=== PATIENT | female | born 1960 | race Caucasian/White ===

== ENCOUNTER 2016-10-18 18:31 | Emergency (ER) | payer OTHER ==
[~2016-10-18] VITALS: Ht 160 cm; Wt 72.6 kg
[~2016-10-18 18:31] MED LIST: ULTRAM50 MG PO
[2016-10-18 19:19] VITALS: BP 100/77
--- NOTE | 2016-10-18 20:35 | NUR ---
PATIENT AMBULATED TO ER OF1.
--- NOTE | 2016-10-18 20:35 | NUR ---
PATIENT PRESENTS TO ED WITH REQUEST FOR MEDICATION REFILL AND C/O LOWER BACK PAIN FOR 6 DAYS, FOR MEDICATION REFILL TRAMADOL 50 MG PO TID . 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 ER MD MADE AWARE OF PT STATUS.
--- NOTE | 2016-10-18 21:01 | NUR ---
Patient being evaluated by physician.
--- NOTE | 2016-10-18 21:08 | NUR ---
Patient discharged with v/s stable. Written and verbal after care instructions given and explained. Patient alert, oriented and verbalized understanding of instructions. Ambulatory with steady gait. All questions addressed prior to discharge. ID band removed. Patient advised to follow up with PMD. Rx of ULTRAM 50MG given. Patient educated on indication of medication including possible reaction and side effects. Opportunity to ask questions provided and answered.
[2016-10-18 21:09] VITALS: BP 119/76
== END 2016-10-18 21:08 | disposition home or self-care (01) ==
LOC: MED 18:31
DX: M54.42 Lumbago with sciatica, left side (principal); M54.41 Lumbago with sciatica, right side

== ENCOUNTER 2016-12-28 18:57 | Emergency (ER) | payer OTHER ==
[~2016-12-28] VITALS: Ht 157.5 cm; Wt 71.2 kg
[~2016-12-28 18:57] MED LIST changes: +TRAM50TA94 PO; -ULTRAM50 MG PO
[2016-12-28 19:09] VITALS: BP 168/92
--- NOTE | 2016-12-28 22:10 | NUR ---
PATIENT AMBULATED TO ER BED 8.
--- NOTE | 2016-12-28 22:15 | NUR ---
PT IS 56/F BIB SELF TO ED WITH C/O EXACERBATED LOW BACK PAIN RADIATING BLE X 2 DAYS DENIES DYSURIA, DENIES INCONTINENCE PT STATES MED HX DISLOCATED DISC. DENIES N/V/D; SKIN IS PINK/WARM/DRY; AAOX4 WITH EVEN AND STEADY GAIT WITH CANE; LUNGS CLEAR BL; HR EVEN AND REGULAR; PT DENIES ANY FEVER, CP, SOB, OR COUGH AT THIS TIME; PATIENT STATES PAIN OF 7/10 AT THIS TIME; VSS; PATIENT POSITIONED FOR COMFORT; HOB ELEVATED; BEDRAILS UP X2; BED DOWN. ER MD MADE AWARE OF PT STATUS.
--- NOTE | 2016-12-28 22:30 | NUR ---
PATIENT BEING EVALUATED BY DR. RAYA.
--- NOTE | 2016-12-28 23:39 | NUR ---
PT APPEARS TO BE RESTING COMFORTABLY IN BED. NO SOB NOTED AT THIS TIME.
--- NOTE | 2016-12-29 00:39 | NUR ---
PT RESTING IN BED. NO SOB NOTED. SAMPSON BAIRD AT BEDSIDE.
[2016-12-29] MEDS ORDERED: NACL 0.9% 1,000 ML IV ONE (01:50)
[2016-12-29] MEDS ORDERED: ONDANSETRON 4 MG/2 ML VIAL IVP ONE (01:50)
[2016-12-29] MEDS ORDERED: HYDROmorphone 1 MG/ML AMP IVP ONE (01:50)
[2016-12-29 02:05] LABS: APPEARANCE,URINE HAZY (CLEAR); BILIRUBIN,URINE 1+ (NEGATIVE); BLOOD, URINE NEGATIVE (NEGATIVE); COLOR,URINE YELLOW (YELLOW); LEUKOCYTE ESTERASE ,URINE NEGATIVE (NEGATIVE); NITRITE, URINE NEGATIVE (NEGATIVE); PH,URINE 5.5 (5.0-9.0); PROTEIN,URINE TRACE (NEGATIVE); UGLUCOSE NEGATIVE (NEGATIVE)
[2016-12-29 02:11] LABS: HEMATOCRIT 39.3 % (36-48); HEMOGLOBIN 12.7 g/dL (12.0-16.0); MEAN CORPUSCULAR HEMOGLOBIN 28 pg (27-31); MEAN CORPUSCULAR HGB CONC 32 g/dL (33-37); MEAN CORPUSCULAR VOLUME 85 fL (80-94); PLATELET COUNT (AUTO) 281 K/uL (140-450); RED BLOOD CELL COUNT(AUTO) 4.62 MIL/uL (4.20-5.40); RED CELL DISTRIBUTION WIDTH 13.2 % (11.6-13.7); WHITE BLOOD COUNT (AUTO) 7.2 K/uL (4.8-10.8)
[2016-12-29 02:15] LABS: BACTERIA,URINE OCCASSIONAL /HPF (None Seen); MUCUS,URINE 3+ /LPF (None Seen); RBC,URINE 0-5 (RARE) /HPF (0-5); SQUAMOUS EPITHELIAL CELL,UR 4-10 (MOD) /LPF (0-3 (FEW))
[2016-12-29 02:16] LABS: WBC,URINE 0-5 (RARE) /HPF (0-5)
[2016-12-29 02:23] LABS: ALBUMIN 3.3 g/dL (3.4-5.0); ANION GAP 11.4 (8-16); CALCIUM 8.5 mg/dL (8.5-10.1); CARBON DIOXIDE 29.6 mmol/L (21-32); CREATININE 0.9 mg/dL (0.6-1.3); EOSINOPHILS % (MANUAL) 2 % (0-4); LYMPHOCYTES % (MANUAL) 48 % (20-46); MONOCYTES % (MANUAL) 8 % (5-12); NEUTROPHILS % (MANUAL) 42 (43-65); TOTAL BILIRUBIN 0.2 mg/dL (0.0-1.0); TOTAL PROTEIN, SERUM 7.1 g/dL (6.4-8.2)
[2016-12-29 02:25] LABS: ICTOTEST NEGATIVE (NEGATIVE)
--- NOTE | 2016-12-29 02:41 | NUR ---
PT RESTING COMFORTABLY IN BED. PT DENIES ANY PAIN AT THIS TIME. NO SOB NOTED. WILL CONTINUE TO MONITOR
[2016-12-29 04:36] VITALS: BP 130/81
--- NOTE | 2016-12-29 04:36 | NUR ---
Patient discharged with v/s stable. Written and verbal after care instructions given and explained. Patient alert, oriented and verbalized understanding of instructions. Ambulatory with steady gait. All questions addressed prior to discharge. ID band removed. Patient advised to follow up with PMD. Rx of ASHLEE HENRY given. Patient educated on indication of medication including possible reaction and side effects. Opportunity to ask questions provided and answered.
--- NOTE | 2016-12-31 12:33 | NUR ---
FINAL URINE CULTURES RESULTS RECEIVED. M.D. UPDATED. NO CHANGES INDICATED AT THIS TIME. CURRENT MEDICATION REGIMEN REMAINS APPROPRIATE.
== END 2016-12-29 04:36 | disposition home or self-care (01) ==
LOC: MED 18:57
DX: M51.36 Other intervertebral disc degeneration, lumbar region (principal)
CPT/HCPCS: 36415; 80053; 81001; 85025; 96361; 96374; 96375; 99284; J1170; J2405; J7030

== ENCOUNTER 2017-01-04 16:05 | Emergency (ER) | payer OTHER ==
[~2017-01-04] VITALS: Ht 154.9 cm; Wt 71.8 kg
[2017-01-04 16:09] VITALS: BP 145/102
--- NOTE | 2017-01-04 18:15 | NUR ---
Pt taken to bed 7.
--- NOTE | 2017-01-04 18:16 | NUR ---
Patient being evaluated by physician at bedside.
[2017-01-04] MEDS ORDERED: ONDANSETRON 4 MG/2 ML VIAL IM ONE (18:20)
[2017-01-04] MEDS ORDERED: HYDROmorphone PFS 2 MG/ML SYR IM ONE (18:20)
--- NOTE | 2017-01-04 18:22 | NUR ---
56/F c/o chronic lower back pain since this morning. Pt denies any injury or trauma. Pt states she is d/t to see her pain management doctor 01/24/17. Ambulatory with a cane for assistance, otherwise steady. VSS. Pt AOX4, clear speech, no distress noted.
--- NOTE | 2017-01-04 18:25 | NUR ---
Pt advised she is not to drive under influence of medications given today. Pt verbalized understanding. Pt states "My phone is in my trunk outside. I just need to call my son in law and he said he would be here." Pt instructed she should not drive home. Pt verbalized understanding.
[2017-01-04 18:50] VITALS: BP 156/81
--- NOTE | 2017-01-04 18:51 | NUR ---
Patient discharged with v/s stable. Written and verbal after care instructions given and explained. Patient alert, oriented and verbalized understanding of instructions. Ambulatory with steady gait. All questions addressed prior to discharge. ID band removed. Patient advised to follow up with PMD. RX OF MOTRIN AND TRAMADOL given. Patient educated on indication of medication including possible reaction and side effects. Opportunity to ask questions provided and answered.
== END 2017-01-04 18:51 | disposition home or self-care (01) ==
LOC: MED 16:05
DX: M54.41 Lumbago with sciatica, right side (principal); G89.29 Other chronic pain; Z98.890 Other specified postprocedural states; Z79.899 Other long term (current) drug therapy
CPT/HCPCS: 96372; 99284; J1170; J2405

== ENCOUNTER 2017-01-13 15:47 | Emergency (ER) | payer OTHER ==
[~2017-01-13] VITALS: Ht 157.5 cm; Wt 72.1 kg
[2017-01-13 15:53] VITALS: BP 170/98
--- NOTE | 2017-01-13 16:15 | NUR ---
PATIENT AMBULATED TO BED 4 AT THIS TIME
[2017-01-13] MEDS ORDERED: KETOROLAC 60 MG/2 ML VIAL IM ONE (16:30)
--- NOTE | 2017-01-13 16:52 | NUR ---
PATIENT PRESENTS TO ED WITH LOWER BACK PAIN RADIATING TO UPPER BACK AND RLE . PT STATES . DENIES N/V/D; SKIN IS PINK/WARM/DRY; AAOX4 WITH EVEN AND STEADY GAIT; LUNGS CLEAR BL; HR EVEN AND REGULAR; PT DENIES ANY FEVER, CP, SOB, OR COUGH AT THIS TIME; PATIENT STATES PAIN OF 7/10 AT THIS TIME; VSS; PATIENT POSITIONED FOR COMFORT; HOB ELEVATED; BEDRAILS UP X2; BED DOWN. ER MD MADE AWARE OF PT STATUS.
[2017-01-13 17:16] VITALS: BP 144/98
--- NOTE | 2017-01-13 17:16 | NUR ---
Patient discharged with v/s stable. Written and verbal after care instructions given and explained. Patient alert, oriented and verbalized understanding of instructions. Ambulatory with to car. All questions addressed prior to discharge. ID band removed. Patient advised to follow up with PMD. Rx of TRAMADOL given. Patient educated on indication of medication including possible reaction and side effects. Opportunity to ask questions provided and answered.
== END 2017-01-13 17:16 | disposition home or self-care (01) ==
LOC: MED 15:47
DX: M54.5 Low back pain (principal)
CPT/HCPCS: 81002; 96372; 99283; J1885; 81025

== ENCOUNTER 2017-01-23 18:43 | Emergency (ER) | payer OTHER ==
[~2017-01-23] VITALS: Ht 160 cm; Wt 74.8 kg
[2017-01-23 18:50] VITALS: BP 156/84
--- NOTE | 2017-01-23 19:10 | NUR ---
to er bed 6
--- NOTE | 2017-01-23 19:13 | NUR ---
56Y/F PT. PRESENTS TO ED WITH C/O CHRONIC BACK PAIN. PT. STATES HAVE APPOINTMENT WITH PMD ON 02/20/17, TODAY PAIN GET WORSE. AAOX4, AMBULATORY WITH STAEDY GAIT USING CANE. RESPIRATIONS ROOM AIR, EVEN AND UNLABORED. NO MEDICAL HX. C/O PAIN 01/30. ER MD MADE AWARE OF PT. STATUS.
--- NOTE | 2017-01-23 20:00 | NUR ---
Patient being evaluated by DR. SINGLETARY at bedside.
--- NOTE | 2017-01-23 20:35 | NUR ---
Patient discharged with v/s stable. Written and verbal after care instructions given and explained. Patient alert, oriented and verbalized understanding of instructions. Ambulatory with steady gait. All questions addressed prior to discharge. ID band removed. Patient advised to follow up with PMD. Rx of TRAMADOL 50 MG given. Patient educated on indication of medication including possible reaction and side effects. Opportunity to ask questions provided and answered.
[2017-01-23 20:37] VITALS: BP 135/75
== END 2017-01-23 20:35 | disposition home or self-care (01) ==
LOC: MED 18:43
DX: G89.29 Other chronic pain (principal); M54.5 Low back pain; I10 Essential (primary) hypertension
CPT/HCPCS: 81002; 81025; 99283

== ENCOUNTER 2017-02-03 14:43 | Emergency (ER) | payer OTHER ==
[~2017-02-03] VITALS: Ht 160 cm; Wt 74.8 kg
[2017-02-03 15:04] VITALS: BP 186/77
--- NOTE | 2017-02-03 15:46 | NUR ---
Patient ambulated to bed 8. RN evaluating patient at bedside.
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
--- NOTE | 2017-02-03 16:09 | NUR ---
SEEN AND EVALUATED BY QUINTIN CHRISTINA AT BEDSIDE
[2017-02-03] MEDS ORDERED: DEXAMETHASONE 10 MG/ML VIAL IM ONE (16:15)
[2017-02-03] MEDS ORDERED: KETOROLAC 30 MG/ML VIAL IM ONE (16:15)
[2017-02-03 16:56] VITALS: BP 159/87
--- NOTE | 2017-02-03 16:57 | NUR ---
Patient discharged with v/s stable. Written and verbal after care instructions given and explained. Patient alert, oriented and verbalized understanding of instructions. Ambulatory with steady gait. All questions addressed prior to discharge. ID band removed. Patient advised to follow up with PMD. Rx of CELEBREX, PREDNISONE AND TRAMADOL given. Patient educated on indication of medication including possible reaction and side effects. Opportunity to ask questions provided and answered.
== END 2017-02-03 16:57 | disposition home or self-care (01) ==
LOC: MED 14:43
DX: G89.29 Other chronic pain (principal); M54.6 Pain in thoracic spine; M54.2 Cervicalgia; M54.5 Low back pain; Z88.6 Allergy status to analgesic agent; Z98.890 Other specified postprocedural states
CPT/HCPCS: 81002; 81025; 96372; 99284; J1100; J1885

== ENCOUNTER 2017-02-14 17:08 | Emergency (ER) | payer OTHER ==
[~2017-02-14] VITALS: Ht 160 cm; Wt 72.6 kg
[2017-02-14 17:29] VITALS: BP 153/75
--- NOTE | 2017-02-14 18:50 | NUR ---
PATIENT TAKEN TO BED #5. AMBULATE WITH CANE
--- NOTE | 2017-02-14 19:15 | NUR ---
PATIENT PRESENTS TO ED WITH C/O BACK PAIN . PT DENIES N/V/D; SKIN IS PINK/WARM/DRY; AAOX4 WITH EVEN AND STEADY GAIT; LUNGS CLEAR BL; HR EVEN AND REGULAR; PT DENIES ANY FEVER, CP, SOB, OR COUGH AT THIS TIME; PATIENT STATES PAIN OF 8/10 AT THIS TIME; VSS; PATIENT POSITIONED FOR COMFORT; HOB ELEVATED; BEDRAILS UP X2; BED DOWN. ER MD MADE AWARE OF PT STATUS.
[2017-02-14] MEDS ORDERED: HYDROmorphone 1 MG/ML AMP IM ONE (19:30)
[2017-02-14] MEDS ORDERED: ONDANSETRON 4 MG/2 ML VIAL IM ONE (19:30)
[2017-02-14 19:55] VITALS: BP 147/72
--- NOTE | 2017-02-14 20:01 | NUR ---
Patient discharged with v/s stable. Written and verbal after care instructions given and explained. Patient alert, oriented and verbalized understanding of instructions. Ambulatory with steady gait. All questions addressed prior to discharge. ID band removed. Patient advised to follow up with PMD. Rx of TRAMADOL 50MG Q6HRS/PRN given. Patient educated on indication of medication including possible reaction and side effects. Opportunity to ask questions provided and answered.
== END 2017-02-14 19:55 | disposition home or self-care (01) ==
LOC: MED 17:08
DX: G89.29 Other chronic pain (principal); M54.5 Low back pain; Z96.49 Presence of other endocrine implants
CPT/HCPCS: 96372; 99284; J1170; J2405

== ENCOUNTER 2017-02-18 16:04 | Emergency (ER) | payer OTHER ==
[~2017-02-18] VITALS: Ht 160 cm; Wt 74.8 kg
[2017-02-18 17:43] VITALS: BP 136/75
[2017-02-18] MEDS ORDERED: KETOROLAC 60 MG/2 ML VIAL IM ONE ×2 (18:00→18:05)
[2017-02-18 18:15] VITALS: BP 144/84
== END 2017-02-18 18:15 | disposition home or self-care (01) ==
LOC: MED 16:04
DX: M54.5 Low back pain (principal)
CPT/HCPCS: 96372; 99283; J1885